=== PATIENT | female | born 1960 | race Caucasian/White ===

== ENCOUNTER 2016-04-27 08:00 | Outpatient (CLI) | payer MEDICAID | END 2016-04-27 08:01 | disposition home or self-care (01) | DX: F32.9 Major depressive disorder, single episode, unspecified (principal); L65.9 Nonscarring hair loss, unspecified; Z13.6 Encounter for screening for cardiovascular disorders ==

== ENCOUNTER 2016-04-27 10:31 | Outpatient (CLI) | payer MEDICAID | END 2016-04-27 10:32 | disposition home or self-care (01) | DX: Z12.31 Encounter for screening mammogram for malignant neoplasm of breast (principal) ==